=== PATIENT | female | born 1955 | race Caucasian/White ===

== ENCOUNTER 2018-12-15 00:18 | Emergency (ER) | payer OTHER ==
[~2018-12-15] VITALS: Ht 154.9 cm; Wt 75.9 kg
[2018-12-15 00:21] VITALS: Ht 154.9 cm; Wt 75.9 kg
[2018-12-15] MEDS ORDERED: SOD CHLORIDE 0.9% 1,000 ML IV STA (01:10)
--- NOTE | 2018-12-15 01:20 | ERD ---
ER Documentation Chief Complaint Chief Complaint ABD PAIN WITH N/V; STARTED TODAY @2245 HPI 63-year-old female presenting with complaints of room spinning dizziness that started around 2245 while she was sitting down. She suddenly felt very nauseated and had multiple episodes of nonbloody and nonbilious vomiting. She started feeling aching in the back of her head as well as epigastric pressure- like pain. She also felt some tingling in the left side of her face, a swishing sound in her left ear, and generalized weakness. her symptoms lasted about 5 minutes but have been intermittent since. Patient denies any medical history. No new medications or unusual foods. Currently she is denying any chest pain, shortness of breath, abdominal pain but states that she feels slightly dizzy, mostly with movement and walking. She also has a 6 out of 10 posterior headache that is nonradiating, with no alleviating or exacerbating factors. Denies any vision disturbance or focal weakness at this time. She does endorse having zoila tigo about 10 years ago. ROS All systems reviewed and are negative except as per history of present illness. Medications Home Meds Active Scripts Meclizine Hcl* (Antivert*) 12.5 Mg Tab, 25 MG PO Q6H PRN for DIZZINESS, #20 TAB Prov:JUD DEJESUS MD 12/15/18 Allergies Allergies: Coded Allergies: Latex, Natural Rubber (Unverified Allergy, Unknown, 12/15/18) PMhx/Soc History of Surgery: Yes (R shoulder sx,R hand sx, X3) Anesthesia Reaction: No Hx Neurological Disorder: Yes (vertigo) Hx Respiratory Disorders: No Hx Cardiac Disorders: No Hx Psychiatric Problems: No Hx Miscellaneous Medical Probl: No Hx Alcohol Use: No Hx Substance Use: No Hx Tobacco Use: No Smoking Status: Never smoker Physical Exam Vitals Vital Signs Date Temp Pulse Resp B/P (MAP) Pulse Ox O2 O2 Flow FiO2 Time Delivery Rate 12/15/18 98.0 59 24 133/69 100 Room Air 03:16 (90) 12/15/18 97.6 62 19 175/74 97 00:21 (107) Physical Exam Const: No acute distress Head: Atraumatic Eyes: Normal Conjunctiva, PERRLA, EOMI, no nystagmus ENT: Normal External Ears, Nose and Mouth. Neck: Full range of motion. No meningismus. Resp: Clear to auscultation bilaterally Cardio: Regular rate and rhythm, no murmurs. 2+ distal pulses in all 4 extremities Abd: Soft, non tender, non distended. Normal bowel sounds Skin: No petechiae or rashes Back: No midline or flank tenderness Ext: No cyanosis, or edema Neur: Awake and alert, oriented, cranial nerves intact, normal speech. Strength and sensations intact in all 4 extremities. No pronator drift. Normal cerebellar exam with rapid alternating movements, [id number], and [id number]. Normal steady gait. Psych: Normal Mood and Affect Result Diagram: 12/15/18 0132 12/15/18 0132 Results 24 hrs Laboratory Tests Test 12/15/18 01:32 White Blood Count 7.7 10^3/ul Red Blood Count 3.92 10^6/ul Hemoglobin 11.6 g/dl Hematocrit 34.9 % Mean Corpuscular Volume 89.0 fl Mean Corpuscular Hemoglobin 29.6 pg Mean Corpuscular Hemoglobin Concent 33.2 g/dl Red Cell Distribution Width 11.8 % Platelet Count 250 10^3/UL Mean Platelet Volume 9.5 fl Immature Granulocytes % 0.500 % Neutrophils % 72.9 % Lymphocytes % 20.9 % Monocytes % 3.7 % Eosinophils % 1.6 % Basophils % 0.4 % Nucleated Red Blood Cells % 0.0 /100WBC Immature Granulocytes # 0.040 10^3/ul Neutrophils # 5.6 10^3/ul Lymphocytes # 1.6 10^3/ul Monocytes # 0.3 10^3/ul Eosinophils # 0.1 10^3/ul Basophils # 0.0 10^3/ul Nucleated Red Blood Cells # 0.0 10^3/ul Sodium Level 139 mmol/L Potassium Level 4.1 mmol/L Chloride Level 105 mmol/L Carbon Dioxide Level 26 mmol/L Anion Gap 8 Blood Urea Nitrogen 24 mg/dl Creatinine 0.81 mg/dl Est Glomerular Filtrat Rate mL/min > 60 mL/min Glucose Level 134 mg/dl Calcium Level 9.5 mg/dl Total Bilirubin 0.3 mg/dl Direct Bilirubin 0.00 mg/dl Indirect Bilirubin 0.3 mg/dl Aspartate Amino Transf (AST/SGOT) 22 IU/L Alanine Aminotransferase (ALT/SGPT) 26 IU/L Alkaline Phosphatase 89 IU/L Troponin I < 0.012 ng/ml Total Protein 7.1 g/dl Albumin 4.1 g/dl Globulin 3.00 g/dl Albumin/Globulin Ratio 1.36 Lipase 45 U/L Current Medications Medications Dose Sig/Ashanti Start Time Status Last (Trade) Ordered Route PRN Stop Time Admin Dose Reason Admin Sodium 1,000 ml @ Q1H STAT 12/15/18 DC 12/15/18 Chloride 1,000 mls/hr IV 01:10 01:45 12/15/18 02:09 10 mg ONCE ONCE 12/15/18 DC 12/15/18 Metoclopramid IV 01:30 01:45 e HCl 12/15/18 01:31 (Reglan) Procedures/MDM EMERGENT LABS AND DIAGNOSTIC STUDIES: Lab Results above were reviewed and interpreted by me. CBC: no clinically significant anemia or evidence of infection CMP: Slightly elevated BUN with normal creatinine, consistent with prerenal azotemia, possibly due to dehydration. No evidence of clinically significant electrolyte abnormality, acidosis, renal failure, hypoglycemia Lipase: no evidence of pancreatitis Troponin within normal limits, not indicative of cardiac ischemia 12-lead EKG was interpreted by Ricky Dejesus MD: Sinus bradycardia 55 bpm Normal axis Normal intervals No acute ST or T wave changes suggestive of acute ischemia or STEMI. Radiology Results as interpreted by Radiology below were reviewed by SMelba Dejesus MD: Chest x-ray shows no acute abnormalities CT head shows no acute abnormalities Initial Nursing notes reviewed. Previous Medical Records requested via the Electronic Health Record. EMERGENCY DEPARTMENT COURSE / MEDICAL DECISION MAKING: Patient is presenting after a vertiginous episode with some epigastric pressure- like pain and headache. CT head was done given she had some neurologic complaints including left-sided facial tingling. I have a low suspicion for central etiology of vertigo. However given her headache, I wanted to rule out an intracranial hemorrhage. CT of the head did not show any significant abnormalities. Patient was treated with Reglan IV as well as IV fluids. Labs did not show any significant abnormalities. Upon reevaluation, the patient states that she feels much better and all of her symptoms have improved. At t his time I have a very low suspicion for acute stroke, intracranial hemorrhage, acute coronary syndrome, aortic or vascular dissection. Patient given a prescription for meclizine for treatment of peripheral vertigo. It is possible that she has Mnire's disease. Differential diagnoses and test results were all discussed with the patient. Return precautions given. Patient's blood pressure was elevated (>120/80) but appears stable without evidence of hypertensive emergency or urgency. The patient was counseled about the risks of hypertension and urged to pursue outpatient monitoring and therapy within a week with their primary care physician. Departure Diagnosis: Primary Impression: Episodic recurrent vertigo Additional Impressions: Headache Headache type: unspecified Headache chronicity pattern: acute headache Intractability: not intractable Qualified Codes: R51 - Headache Nausea and vomiting Vomiting type: unspecified Vomiting Intractability: non-intractable Qualified Codes: R11.2 - Nausea with vomiting, unspecified Condition: Stable EKJUD SHELTON MD Dec 15, 2018 01:19
[2018-12-15] MEDS ORDERED: METOCLOPRAMIDE 10 MG INJ IV ONE (01:30)
[2018-12-15] MEDS ORDERED: MECL12.574 PO (03:01)
[2018-12-15 03:16] VITALS: BP 133/69; PULSE 59; RESP 24
== END 2018-12-15 03:16 | disposition home or self-care (01) ==
LOC: E/R 00:18
DX: R42 Dizziness and giddiness (principal); R51 Headache; R11.2 Nausea with vomiting, unspecified; R40.2142 Coma scale, eyes open, spontaneous, at arrival to emergency department; R40.2252 Coma scale, best verbal response, oriented, at arrival to emergency department; R40.2362 Coma scale, best motor response, obeys commands, at arrival to emergency department
CPT/HCPCS: 36415; 70450; 71045; 80053; 83690; 84484; 85025; 93005; 96374; J2765; J7030; Z7502